=== PATIENT | female | born 1945 | race Caucasian/White ===

== ENCOUNTER → 2018-01-04 | Outpatient (CLI) | payer OTHER ==
[~2018-01-04] MED LIST: CALCIUM OYSTER500 MG PO; FISHOIL PO; LISINOPRIL-HCT1 EAC2 PO; MOBIC15 MG PO; MULTIVITAMINS PO; PRILOSEC 20 MG20 MG PO
== END ==
LOC: RAD 01:15
DX: Z12.31 Encounter for screening mammogram for malignant neoplasm of breast (principal)

== ENCOUNTER → 2019-01-15 | Outpatient (CLI) | payer OTHER | LOC: RAD 01-13 16:02 | DX: Z12.31 Encounter for screening mammogram for malignant neoplasm of breast (principal) ==

== ENCOUNTER → 2020-01-06 | Outpatient (CLI) | payer OTHER | LOC: BC 13:22 | DX: Z12.31 Encounter for screening mammogram for malignant neoplasm of breast (principal); N64.89 Other specified disorders of breast ==

== ENCOUNTER → 2021-01-10 | Outpatient (CLI) | payer OTHER | LOC: BC 12:57 | PROVIDERS: ATTEND Family Medicine | DX: Z12.31 Encounter for screening mammogram for malignant neoplasm of breast (principal) ==